=== PATIENT | female | born 1980 | race Caucasian/White ===

== ENCOUNTER 2022-12-10 08:16 | Outpatient (CLI) | payer OTHER, SELFPAY ==
[2022-12-10 11:47] LABS: Albumin* 4.5 g/dL (3.3-5.0); Chloride* 107 mmol/L (96-114)
[2022-12-10 11:48] LABS: Potassium* 4.6 mmol/L (3.6-5.1); Sodium* 139 mmol/L (135-149)
[2022-12-10 11:50] LABS: Alkaline Phosphatase* 43 U/L (40-150); Aspartate Amino Transferase* 25 U/L (12-35); Bilirubin Total* 0.5 mg/dL (0.1-1.5); Blood Urea Nitrogen* 17 mg/dL (5-24); Carbon Dioxide* 28 mmol/L (20-32); Cholesterol* 166 mg/dL (90-199); Creatinine* 0.7 mg/dL (0.5-1.5); Estimated Glomerular Filt Rate 109 ml/min; Glucose* 97 mg/dL (60-115); Total Protein* 7.3 g/dL (6.0-8.3); Triglycerides* 60 mg/dL (40-149)
[2022-12-10 11:51] LABS: Alanine Aminotransferase* 20 U/L (4-35); Calcium* 9.2 mg/dL (8.4-10.6); HDL Cholesterol* 80 mg/dL (>=50); LDL Cholesterol Calculated 74 mg/dL (<100)
== END 2022-12-10 08:17 | disposition home or self-care (01) ==
PROVIDERS: PCP Internal Medicine; Visit Provider Internal Medicine
DX: I10 Essential (primary) hypertension (principal)
CPT/HCPCS: 80053; 80061

== ENCOUNTER 2024-05-07 08:19 | Outpatient (CLI) | payer BC, SELFPAY ==
--- OUTSIDE RECORDS SUMMARY | 2024-05-11 21:48 | XMS_ITS | Clinical Summary ---
Author Organization [place] Address [facility]0 [facility] [place] [address] Care Team Providers Care Outplacement Consultant Name Role Phone No Ref-Primary, Physician Primary Care Provider Allergies No known active allergies Medications Medication Sig Dispensed Refills Start Date End Date Status PREDNISONE 20 MG OR TABSIndications:Bronchit is with bronchospasm 2 tabs PO QAM x 5 days 10 0 12/04/2009 Active AZITHROMYCIN 250 MG OR TABSIndications:Bronchit is with bronchospasm 2 tabs PO qday x 5 days 10 0 12/04/2009 Active Active Problems Problem Noted Date Diagnosed Date CARDIOVASCULAR SCREENING; LDL GOAL LESS THAN 160 09/16/2010 Social History Tobacco Use Types Packs/Day Years Used Date Smoking Tobacco: Never Alcohol Use Standard Drinks/Week Comments Not Asked 0 (1 standard drink = 0.6 oz pur e alcohol) Adolescent Education Answer Date Record ed Getting School Help Needed Not on file 09/02 Sex and Gender Information Value Date Recorded Sex Assigned at Not on file Gender Identity Not on file Sexual Orientation Not on file Last Filed Vital Signs Vital Sign Reading Time Taken Comments Blood Pressure 130/74 12/04/2009 11:36 AM RAIL TRANSPORTATION OPERATOR Pulse - - Temperature 37.3 ??C (99.1 ??F) 12/04/2009 11:[address] Respiratory Rate - - Oxygen Saturation - - Inhaled Oxygen Concentration - - Weight 59 kg (130 lb) 12/04/2009 11:36 AM RAIL TRANSPORTATION OPERATOR Height 167.6 cm (5' 6) 12/04/2009 11:36 AM RAIL TRANSPORTATION OPERATOR Body Mass Index 20.98 12/04/2009 11:36 AM RAIL TRANSPORTATION OPERATOR Plan of Treatment Health Maintenance Due Date Last Done Comments ADVANCE CARE PLANNING 1978 ANNUAL REVIEW OF HM ORDERS 1978 CT COLONOGRAPHY 1978 FIT 1978 FLEX SIG 1978 sDNA (Cologuard) 1978 COLONOSCOPY 1988 COLORECTAL CANCER SCREENING 1988 HIV SCREENING 1993 HEPATITIS C SCREENING 1996 HEPATITIS B IMMUNIZATION (1 of 3 - 19+ 3-dose series) 1997 GLUCOSE 05/16/2011 05/16/2008 LIPID 2018 YEARLY PREVENTIVE VISIT 05/22/2022 05/22/2021 COVID-19 Vaccine ( season) 2023 08/13/2022, 09/25/2021, 01/24/2021, Additional history exists PHQ-2 (once per calendar year) 2023 INFLUENZA VACCINE (Season Ended) 2024 08/13/2022, 08/17/2020, 08/17/2020, Additional history exists MAMMO SCREENING 05/07/2025 05/07/2023, 12/19, 10/17/2020, Additional history exists PAP 05/07/2026 05/07/2023 DTAP/TDAP/TD IMMUNIZATION (3 - Td or Tdap) 12/10/2032 12/10/2022, 08/28/2012 HPV IMMUNIZATION Aged Out No longer e ligible based on patient's age to complete this topic IPV IMMUNIZATION Aged Out No longer e ligible based on patient's age to complete this topic MENINGITIS IMMUNIZATION Aged Out No l onger eligible based on patient's age to complete this topic Pneumococcal Vaccine: Pediatrics (0 to 5 Years) and At-Risk Patients (6 to 64 Years) Aged Out No longer eligible based on patient's age to complete this topic RSV MONOCLONAL ANTIBODY Aged Out No l onger eligible based on patient's age to complete this topic Procedures Procedure Name Priority Date/Time Associated Diagnosis Comments GYNECOLOGIC CYTOLOGY Routine 05/07/2023 4:31 PM CDT Encounter for gynecological examination (general) (routine) without abnormal findings MA SCREENING BILATERAL W/ ARTUR Routine 05/07/2023 2:19 PM CDT Visit for screening mammogram COMPREHENSIVE METABOLIC PANEL STAT 05/16/2008 6:30 PM CDT from Last 3 Months or Most Recently Relevant to Health Maintenance Results * Gynecologic Cytology (PAP) (05/07/2023 4:31 PM CDT) Interpretation Negative for Intraepithelial Lesion or Malignancy (NILM) 05/12/2023 10:05 AM CDT [facility] Comment Papanicolaou Test Limitations: Cervical cytology is a screening test with limited sensitivity, and regular screening is critical for cancer prevention. Pap tests are primarily effective for the diagnosis/prevent ion of squamous cell carcinoma, not adenocarcinoma or other cancers. 05/12/2023 10:05 AM CDT [facility] Specimen Adequacy Satisfactory for evaluation, endocervical/loera sformation zone component present 05/12/2023 10:05 AM CDT [facility] Clinical Information none 05/12/2023 10:05 AM CDT [facility] LMP/Menopause Date 04/30/23 05/12/2023 10:05 AM CDT [facility] Reflex Testing Yes if ASCUS 05/12/20 10:05 AM CDT [facility] Previous Abnormal? No 05/12/2023 10:05 AM CDT [facility] Previous Abnormal Diagnosis negative 05/12/2023 10:05 AM CDT [facility] Performing Labs The technical component of this testing was completed at [facility] 05/12/2023 10:05 AM CDT [facility] Brushing ENDOCERVICAL STRUCTURE / Unknown 05/07/2023 4:31 PM CDT 05/07/2023 8:52 PM CDT Gloria STILL - [facility] [address], [address] [place] [address], [facility] [phone] * MA Screen Bilateral w/Artur (05/07/2023 2:19 PM CDT) Anatomical Region Laterality Modality Breast Bilateral Mammography Impressions 05/07/2023 2:58 PM CDT IMPRESSION: ACR BI-RADS Category 1: Negative RECOMMENDED FOLLOW-UP: Annual routine screening mammogram The results and recommendations of this examination will be communicated to the patient. Alyson Lancaster MD Narrative 05/07/2023 2:58 PM CDT BILATERAL FULL FIELD DIGITAL SCREENING MAMMOGRAM WITH TOMOSYNTHESIS Performed on: 05/07/23 Compared to: 01/10/2022, 10/17/2020, and 01/08/2019 Technique: ??This study was evaluated with the assistance of Computer-Aided Detection. ??Breast Tomosynthesis was used in interpretation. Findings: The breasts are heterogeneously dense, which may obscure small masses. ??There is no radiographic evidence of malignancy. Gloria Kathleen Batres MD IMG M AMMOGRAPHY ORDERABLES * (ABNORMAL) Comprehensive metabolic panel (05/16/2008 6:30 PM CDT) Sodium 139 133 - 144 mmol/L [facility] Potassium 3.8 3.4 - 5.3 mmol/L [facility] Chloride 106 94 - 109 mmol/L [facility] Carbon Dioxide 25 20 - 32 mmol/L [facility] Glucose 90 60 - 99 mg/dL [facility] Urea Nitrogen 10 5 - 24 mg/dL [facility] Creatinine 0.56 0.52 - 1.04 mg/dL [facility] Comment:New IDMS-traceable c alibration beginning 03/17/08 GFR Estimate >90 >60 mL/min/1.7 m2 [facility] GFR Estimate If Black >90 >60 mL/min/1.7 m2 [facility] Calcium 8.4(L) 8.5 - 10.4 mg/dL [facility] AST 43 0 - 45 U/L [facility] Protein Total 6.2(L) 6.8 - 8.8 g/dL [facility] Comment:As of 08, refer ence range reflects plasma specimen type. Anion Gap 8 6 - 17 mmol/L [facility] Albumin 3.1(L) 3.3 - 4.6 g/dL [facility] ALT 34 0 - 50 U/L [facility] Alkaline Phosphatase 123 40 - 150 U/L [facility] Bilirubin Total 0.2 0.2 - 1.3 mg/dL [facility] 05/16/2008 6:30 PM CDT 05/16/2008 6:19 PM CDT Yesenia Epstein MD LAB - BLOOD ORDERA BLES [facility] from Last 3 Months or Most Recently Relevant to Health Maintenance Care Teams Outplacement Consultant Relationship Specialty Start Date End Date No Ref-Primary, Physician PCP - General 10/19/20
--- OUTSIDE RECORDS SUMMARY | 2024-05-11 21:48 | XMS_ITS | Referral Summary ---
Author Organization [place] Address [facility] [place] [address] Care Team Providers Care Service Engineer Name Role Phone No Ref-Primary, Physician Primary [...] Comments Blood Pressure 130/74 12/04/2009 11:36 AM SPORTS COMPLEX ATTENDANT Pulse - - Temperature 37.3 ??C (99.1 ??F) 12/04/2009 11:[address] Respiratory Rate - - Oxygen Saturation - - Inhaled Oxygen Concentration - - Weight 59 kg (130 lb) 12/04/2009 11:36 AM SPORTS COMPLEX ATTENDANT Height 167.6 cm (5' 6) 12/04/2009 11:36 AM SPORTS COMPLEX ATTENDANT Body Mass Index 20.98 12/04/2009 11:36 AM SPORTS COMPLEX ATTENDANT Plan of Treatment Not on file Procedures Procedure Name Priority Date/Time Associated Diagnosis [...] component of this testing was completed at [facility] 05/12/2023 10:05 AM CDT [facility] Brushing ENDOCERVICAL STRUCTURE / Unknown 05/07/2023 4:31 PM CDT 05/07/2023 8:52 PM CDT Gloria STILL - [facility] Specialty Lab [address] [facility], [address] [place] [address], [facility] [phone] * MA Screen Bilateral w/Artur (05/07/2023 2:19 [...] is no radiographic evidence of malignancy. Gloria Batres MD IMG M AMMOGRAPHY ORDERABLES * [...] Recently Relevant to Health Maintenance Care Teams Service Engineer Relationship Specialty Start Date End Date No Ref-Primary, Physician PCP - General 10/19/20
--- OUTSIDE RECORDS SUMMARY | 2024-05-11 21:48 | XMS_ITS | Clinical Summary ---
Author Organization [facility] Address [place], [place] [address] Care Team Providers Care Traffic Supervisor Name Role Phone Malcom Grigsby MD Primary Care Provider Lovely Graham MD Unavailable [phone] Other, Er Doc Unavailable Unavailable Allergies No known active allergies Medications Medication Sig Dispensed Refills Start Date End Date Status lisinopril-hydroch lorothiazide (10-12.5 mg) tablet (PRINZIDE; ZESTORETIC) lisinopril 10 mg-hydrochlorothiaz miguel angel 12.5 mg tablet TAKE 1 TABLET BY MOUTH EVERY DAY Active hydroxychloroquine (PLAQUENIL) 200 mg tabletIndications: Inflammatory arthritis,High risk medication use ALTERNATING DOSES OF 200 MG AND 400 MG DAILY. 200 MG ON DAY 1 FOLLOWED BY 400 MG ON DAY 2 ETC. 135 Tablet 2 09/08/2023 Active predniSONE (DELTASONE) 10 mg tabletIndications: Inflammatory arthritis Take 1 Tablet (10 mg) by mouth once daily with a meal. 14 Tablet 03/29/2024 Active Active Problems Problem Noted Date Diagnosed Date Hypertension 05/23/2014 Encounters Date Type Department Care Team Description 03/29/2024 2:00 PM CDT Office Visit [facility] [address] [place] [address] Lovely Graham MD Follow Up (Tingling in fingers. Intermittent x 2 weeks. Swelling in LT knee as of yesterday. /Last visit 01/06. Last CEE 05/06/23) 03/29/2024 Travel from Last 3 Months Immunizations Name Administration Dates Next Due Influenza, IIV3 (Age >=3 years) 08/28/2012 Influenza, IIV4 08/13/2022 Influenza, IIV4 (=>6mos) MDV 08/17/2020,08/24/20 19 Tdap 12/10/2022,08/28/2012 Family History Medical History Relation Name Comments Good Health Brother Heart Disease Maternal Grandfather Hypertension Maternal Grandfather Osteoarthritis Maternal Grandmother Heart Disease Mother Rheum arthritis Paternal Grandfather Juvenile idiopathic arthritis Son Relation Name Status Comments Brother Maternal Grandfather Maternal Grandmother Mother Alive Paternal Grandfather Son Social History Tobacco Use Types Packs/Day Years Used Date Smoking Tobacco: Never Smokeless Tobacco: Never Tobacco Cessation:Counseling Given: Yes Alcohol Use Standard Drinks/Week Comments Yes 1 (1 standard drink = 0.6 oz pur e alcohol) no regular PHQ-2 Answer Date Recorded PHQ-2 Score 0 01/19/2019 Sex and Gender Information Value Date Recorded Sex Assigned at Not on file Gender Identity Not on file Sexual Orientation Not on file Obstetrics History Last Filed Vital Signs Vital Sign Reading Time Taken Comments Blood Pressure 110/66 03/29/2024 2:00 PM CDT Pulse 68 03/29/2024 2:00 PM CDT Temperature 37.3 ??C (99.1 ??F) 05/14/2018 11:40 AM C DT Respiratory Rate 12 03/29/2024 2:00 PM CDT Oxygen Saturation 97% 05/14/2018 11:40 AM CDT Inhaled Oxygen Concentration - - Weight 64.5 kg (142 lb 4.8 oz) 03/29/2024 2:00 P M CDT Height 167.6 cm (5' 6) 01/31/2023 12:52 PM CDT Body Mass Index 22.97 01/31/2023 12:52 PM CDT Plan of Treatment Upcoming Encounters Date Type Department Care Team (Late st Contact Info) Description 01/10/2025 1:30 PM SILVICULTURE PROFESSOR Office Visit [facility] [address] [place] [address] Lovely Graham MD [address] [place] [address] Health Maintenance Due Date Last Done Comments HIV for age 15-65 1993 Hepatitis C screening for age 18-79 1996 Pap test for age 21-65 06/17/2016 3 (Completed outside of [facility]) Depression screening for age 12+ 05/11/2019 05/11/2018 Colonoscopy through age 75 2023 Lipids for age 45-75 2023 05/23/2014 Mammogram for age 45-75 2023 COVID-19 vaccine series ( season) 2023 08/13/2022, 09/25/2021, 01/24/2021, Additional history exists BMI (ht and wt on same day) for age 18+ 02/01/2024 01/31/2023, 07/13/2021, 04/28/2019, Additional history exists Influenza for age 9-49 07/18/2024 , 08/17/2020, 08/24/2019, Additional history exists Tetanus booster 12/10/2032 12/10/2022, 08/28/2012 Tdap Completed 12/10/2022, 08/28/2012 Pneumococcal series for age 6-64 Aged Out No longer eligible based on patient's age to complete this topic Procedures Procedure Name Priority Date/Time Associated Diagnosis Comments C4 COMPLEMENT Routine 03/29/2024 2:38 PM CDT High risk medication use C3 COMPLEMENT Routine 03/29/2024 2:38 PM CDT High risk medication use DNA DOUBLE-STRANDED (DSDNA) ANTIBODIES BY CLYDE VIDES IFA Routine 03/29/2024 2:38 PM CDT High risk medication use COMP METABOLIC PANEL Routine 03/29/2024 2:38 PM CDT High risk medication use HEMOGLOBIN Routine 03/29/2024 2:38 PM CDT High risk medication use WHITE BLOOD COUNT Routine 03/29/2024 2:3 8 PM CDT High risk medication use RA QUANTITATIVE Routine 03/29/2024 2:38 PM CDT High risk medication use CYCLIC CITRULLINE PEPTIDE Routine 03/29/2024 2:38 PM CDT High risk medication use C-REACTIVE PROTEIN Routine 03/29/2024 2: 38 PM CDT High risk medication use SEDIMENTATION RATE Routine 03/29/2024 2: 38 PM CDT High risk medication use LIPID PANEL W REFLEX MEASURED LDL Routine 05/23/2014 9:12 AM CDT Lipid screening from Last 3 Months or Most Recently Relevant to Health Maintenance Results * SEDIMENTATION RATE (03/29/2024 2:38 PM CDT) SEDIMENTATION RATE 3 <20 mm/hr 2023 3:02 PM CDT [facility] Blood BLOOD SPECIMEN / Unknown Venipuncture / Unknown 03/29/2024 2:38 PM CDT 03/29/2024 2:38 PM CDT Lovely Graham MD HEMATOLOGY [facility] SENDOUT INTERNAL ZIP [phone] [place] [address] * CYCLIC CITRULLINE PEPTIDE (03/29/2024 2:38 PM CDT) CCP Antibody,IgG/I gA <4.6 <=19.9 CU 03/31/2024 1:12 PM CDT [facility] Blood BLOOD SPECIMEN / Unknown Venipuncture / Unknown 03/29/2024 2:38 PM CDT 03/29/2024 2:38 PM CDT Narrative [facility] - 03/31/2024 1:12 PM CDT Negative <20 Positive >=20 The following results were obtained with the [employer] QUANTA Flash CCP3 chemiluminescent immunoassay. Values obtained with different manufacturers' assay methods may not be used interchangeably. Lovely Graham MD SEND OUTS Performing Organization Address City/[facility]/ZIP Co de Phone Number [facility] [address] [place] [phone], [place] * RA QUANTITATIVE (03/29/2024 2:38 PM CDT) RHEUMATOID FACTOR,QUANT <10.00 <14.00 IU/mL 03/30/2024 11:32 AM CDT [facility] Blood BLOOD SPECIMEN / Unknown Venipuncture / Unknown 03/29/2024 2:38 PM CDT 03/29/2024 2:38 PM CDT Lovely Graham MD SEND OUTS Performing Organization Address [facility] Co de Phone Number [facility] [address] [place] [address], [place] * C3 COMPLEMENT (03/29/2024 2:38 PM CDT) C3 COMPLEMENT 101.98 81.10 - 157.00 mg/dL 03/30/2024 1:22 PM CDT [facility] Blood BLOOD SPECIMEN / Unknown Venipuncture / Unknown 03/29/2024 2:38 PM CDT 03/29/2024 2:38 PM CDT Lovely Graham MD CHEMISTRY Performing Organization Address [facility]/ZIP Co de Phone Number [facility] [address] [place] [phone], [place] * C4 COMPLEMENT (03/29/2024 2:38 PM CDT) C4 Complement 22.36 12.90 - 39.20 mg/dL 03/30/2024 1:22 PM CDT [facility] Blood BLOOD SPECIMEN / Unknown Venipuncture / Unknown 03/29/2024 2:38 PM CDT 03/29/2024 2:38 PM CDT Lovely Graham MD CHEMISTRY [facility] [address] [place] [address], * WHITE BLOOD COUNT (03/29/2024 2:38 PM CDT) WHITE BLOOD COUNT 7.0 4.5 - 11.0 thou/cu mm 03/29/2024 2:45 PM CDT [facility] NRBC 0.0 % 03/29/2024 2:45 PM CDT [facility] ABS NRBC 0.0 thou /cu mm 03/29/2024 2:45 PM CDT [facility] Blood BLOOD SPECIMEN / Unknown Venipuncture / Unknown 03/29/2024 2:38 PM CDT 03/29/2024 2:38 PM CDT Lovely Graham MD HEMATOLOGY [facility] SENDOUT INTERNAL ZIP [phone] [place] [id number] * HEMOGLOBIN (03/29/2024 2:38 PM CDT) Pathologist [facility] HEMOGLOBIN 12.4 12.0 - 16.0 g/dL 03/29/2024 2:45 PM CDT [facility] MCV 89 80 - 100 fL 03/29/2024 2:45 PM CDT [facility] Blood BLOOD SPECIMEN / Unknown Venipuncture / Unknown 03/29/2024 2:38 PM CDT 03/29/2024 2:38 PM CDT Lovely Graham MD HEMATOLOGY [facility] SENDOUT INTERNAL ZIP [phone] [place] [address] * DNA DOUBLE-STRANDED (DSDNA) ANTIBODIES BY CRITHIDIA LUCILIAE IFA (03/29/2024 2:38 PM CDT) Pathologist [facility] ANTI-ATMAUTLUAK DNA Negative Negative 03/31/2024 12:53 PM CDT [facility] Blood BLOOD SPECIMEN / Unknown Venipuncture / Unknown 03/29/2024 2:38 PM CDT 03/29/2024 2:38 PM CDT Narrative [facility] - 03/31/2024 12:53 PM CDT Method: DNA Double-Stranded (dsDNA) Antibodies by Clyde vides IFA, IgG, Serum Lovely Graham MD SEND OUTS [facility] [address] [place] [address], * C-REACTIVE PROTEIN (03/29/2024 2:38 PM CDT) C-REACTIVE PROTEIN <0.3 <0.5 mg/dL 03/29/2024 3:05 PM CDT [facility] Blood BLOOD SPECIMEN / Unknown Venipuncture / Unknown 03/29/2024 2:38 PM CDT 03/29/2024 2:38 PM CDT Lovely Graham MD CHEMISTRY [facility] SENDOUT INTERNAL ZIP [phone] [place] [address] * (ABNORMAL) COMP METABOLIC PANEL (03/29/2024 2:38 PM CDT) Pathologist [facility] SODIUM 138 136 - 145 mmol/L 03/29/2024 3:03 PM CDT [facility] POTASSIUM 3.8 3.5 - 5.1 mmol/L 03/29/2024 3:03 PM CDT [facility] CHLORIDE 103 98 - 107 mmol/L 03/29/2024 3:03 PM CDT [facility] CO2,TOTAL 26 22 - 29 mmol/L 03/29/2024 3:03 PM CDT [facility] ANION GAP 9 5 - 18 03/29/2024 3:03 PM CDT [facility] GLUCOSE 92 70 - 99 mg/dL 03/29/2024 3:03 PM CDT [facility] CALCIUM 9.0 8.6 - 10.0 mg/dL 03/29/2024 3:03 PM CDT [facility] BUN 9 6 - 20 mg/dL 03/29/2024 3:03 PM CDT [facility] CREATININE 0.68 0.50 - 0.90 mg/dL 03/29/2024 3:03 PM T [facility] BUN/CREAT RATIO 13 10 - 20 4 3:03 PM T [facility] eGFR >90 >90 mL/min/1.7 3m2 03/29/2024 3:03 PM T [facility] Comment:As of 2022, eG FR is calculated by the CKD-EPI creatinine equation without race adjustment. ??eGFR can be influenced by muscle mass, exercise, and diet. ??The reported eGFR is an estimation only and is only applicable if the renal function is stable. ALBUMIN 4.6 4.0 - 4.9 g/dL 03/29/2024 3:03 PM T [facility] PROTEIN,TOTAL 7.2 6.0 - 8.0 g/dL 03/29/2024 3:03 PM T [facility] BILIRUBIN,TOTAL 0.4 0.0 - 1.2 mg/dL 03/29/2024 3:03 PM T [facility] ALK PHOSPHATASE 44 35 - 104 IU/L 03/29/2024 3:03 PM T [facility] ALT (SGPT) 8(L) 10 - 35 IU/L 03/29/2024 3:03 PM T [facility] AST (SGOT) 21 10 - 35 IU/L 03/29/2024 3:03 PM T [facility] Blood BLOOD SPECIMEN / Unknown Venipuncture / Unknown 03/29/2024 2:38 PM CDT 03/29/2024 2:38 PM CDT Lovely Graham MD CHEMISTRY [facility] SENDOUT INTERNAL ZIP [phone] [place] [phone] * LIPID PANEL W REFLEX MEASURED LDL (05/23/2014 9:12 AM CDT) CHOLESTEROL,TOTAL 184 100 - 199 mg/dL 05/23/2014 9:39 AM CDT [facility] TRIGLYCERIDES 35 <150 mg/dL 05/23/2014 9:39 AM CDT [facility] HDL CHOLESTEROL 67 >40 mg/dL 4 9:39 AM CDT [facility] NON-HDL CHOLESTEROL 117 <145 mg/dl 05/23/2014 9:39 AM CDT [facility] CHOL/HDL RATIO 2.75 <4.50 05/23/2014 9:39 AM CDT [facility] LDL CHOLESTEROL 110 <=130 mg/dL 05/23/2014 9:39 AM CDT [facility] PATIENT STATUS FASTING 05/23/2014 9:39 AM CDT [facility] Blood specimen (specimen) BLOOD SPECIMEN / Unknown Venipuncture / Unknown 05/23/2014 9:12 AM CDT 05/23/2014 9:12 AM CDT Marylin Lopez MD CHEMISTRY [facility] [address] [place] [address], from Last 3 Months or Most Recently Relevant to Health Maintenance Care Teams Traffic Supervisor Relationship Specialty Start Date End Date Malcom Grigsby MD [address] [place] [address] PCP - General Internal Medicine 05/11/18 Lovely Graham MD [address] [facility] [address] [place] [address] Rheumatology Rheumatology 04/28/19 Other, Er Doc Ophthalmology 04/28/19
== END 2024-05-07 08:20 | disposition home or self-care (01) ==
LOC: NFLDREF 05-11 21:47
PROVIDERS: PCP Internal Medicine; Referring Provider Internal Medicine; Visit Provider Internal Medicine
DX: I10 Essential (primary) hypertension (principal); E78.5 Hyperlipidemia, unspecified; Z13.9 Encounter for screening, unspecified
CPT/HCPCS: 80053; 80061

== ENCOUNTER 2024-05-24 07:21 | Outpatient (CLI) | payer BC, SELFPAY ==
--- OUTSIDE RECORDS SUMMARY | 2024-05-24 07:23 | XMS_ITS | Clinical Summary ---
Author Organization [place] Address [facility] [place] [address] Care Team Providers Care Tempering Kiln Tender Name Role Phone No Ref-Primary, Physician Primary [...] Comments Blood Pressure 130/74 12/04/2009 11:36 AM MEDIA DEVELOPER Pulse - - Temperature 37.3 ??C (99.1 ??F) 12/04/2009 11:[address] Respiratory Rate - - Oxygen Saturation - - Inhaled Oxygen Concentration - - Weight 59 kg (130 lb) 12/04/2009 11:36 AM MEDIA DEVELOPER Height 167.6 cm (5' 6) 12/04/2009 11:36 AM MEDIA DEVELOPER Body Mass Index 20.98 12/04/2009 11:36 AM MEDIA DEVELOPER Plan of Treatment Health Maintenance Due Date [...] component of this testing was completed at [facility] 05/12/2023 10:05 AM CDT [facility] Brushing ENDOCERVICAL STRUCTURE / Unknown 05/07/2023 4:31 PM CDT 05/07/2023 8:52 PM CDT Gloria STILL - [facility] [address], [address] [place] [address], [facility] [phone] * MA Screen Bilateral w/Artur (05/07/2023 2:19 [...] Recently Relevant to Health Maintenance Care Teams Tempering Kiln Tender Relationship Specialty Start Date End Date No Ref-Primary, Physician PCP - General 10/19/20
--- OUTSIDE RECORDS SUMMARY | 2024-05-24 07:23 | XMS_ITS | Referral Summary ---
Author Organization [place] Address [facility] [place] [address] Care Team Providers Care Health Unit Supervisor Name Role Phone No Ref-Primary, Physician Primary [...] Comments Blood Pressure 130/74 12/04/2009 11:36 AM [employer] Pulse - - Temperature 37.3 ??C (99.1 ??F) 12/04/2009 11:[address] Respiratory Rate - - Oxygen Saturation - - Inhaled Oxygen Concentration - - Weight 59 kg (130 lb) 12/04/2009 11:36 AM [employer]ER Height 167.6 cm (5' 6) 12/04/2009 11:36 AM [employer]OURCE OFFICER Body Mass Index 20.98 12/04/2009 11:36 AM [employer] RESOURCE OFFICER Plan of Treatment Not on file Procedures [...] component of this testing was completed at [facility] 05/12/2023 10:05 AM CDT SPECIAL[facility] Brushing ENDOCERVICAL STRUCTURE / Unknown 05/07/2023 4:31 PM CDT 05/07/2023 8:52 PM CDT Gloria STILL - [facility] Specialty Lab [address] [facility], [address] [place] [id number], [facility] [phone] * MA Screen Bilateral w/Artur (05/07/2023 2:19 [...] Recently Relevant to Health Maintenance Care Teams Health Unit Supervisor Relationship Specialty Start Date End Date No Ref-Primary, Physician PCP - General 10/19/20
--- OUTSIDE RECORDS SUMMARY | 2024-05-24 07:23 | XMS_ITS | Clinical Summary ---
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 Office Visit [facility] [address] [place] [address] Lovely Graham MD [address] [place] [address] Health Maintenance Due Date Last Done Comments [...] 3 <20 mm/hr 2023 3:02 PM CDT [facility] Blood BLOOD SPECIMEN / Unknown Venipuncture / Unknown 03/29/2024 2:38 PM CDT 03/29/2024 2:38 PM CDT Lovely Graham MD HEMATOLOGY [facility] SENDOUT INTERNAL ZIP [phone] [place] [address] * CYCLIC CITRULLINE PEPTIDE (03/29/2024 2:38 PM CDT) CCP Antibody,IgG/I gA <4.6 <=19.9 CU 03/31/2024 1:12 PM CDT [facility] Blood BLOOD SPECIMEN / Unknown Venipuncture / Unknown 03/29/2024 2:38 PM CDT 03/29/2024 2:38 PM CDT Narrative [facility] - 03/31/2024 1:12 PM CDT Negative <20 Positive >=20 The following results were obtained with the MoveinBlue QUANTA Flash CCP3 chemiluminescent immunoassay. Values obtained with different manufacturers' assay methods may not be used interchangeably. Lovely Graham MD SEND OUTS Performing Organization Address City/[facility]/ZIP Co de Phone Number [facility] [address] [place] [phone], [place] * RA QUANTITATIVE (03/29/2024 2:38 PM CDT) RHEUMATOID FACTOR,QUANT <10.00 <14.00 IU/mL 03/30/2024 11:32 AM CDT [facility] Blood BLOOD SPECIMEN / Unknown Venipuncture / Unknown 03/29/2024 2:38 PM CDT 03/29/2024 2:38 PM CDT Lovely Graham MD SEND OUTS Performing Organization Address [facility] Co de Phone Number [facility] [address] [place] [address], [place] * C3 COMPLEMENT (03/29/2024 2:38 PM CDT) C3 COMPLEMENT 101.98 81.10 - 157.00 mg/dL 03/30/2024 1:22 PM CDT [facility] Blood BLOOD SPECIMEN / Unknown Venipuncture / Unknown 03/29/2024 2:38 PM CDT 03/29/2024 2:38 PM CDT Lovely Graham MD CHEMISTRY Performing Organization Address [facility]/ZIP Co de Phone Number [facility] [address] [place] [address], [place] * C4 COMPLEMENT (03/29/2024 2:38 PM CDT) C4 Complement 22.36 12.90 - 39.20 mg/dL 03/30/2024 1:22 PM CDT [facility] Blood BLOOD SPECIMEN / Unknown Venipuncture / Unknown 03/29/2024 2:38 PM CDT 03/29/2024 2:38 PM CDT Lovely Graham MD CHEMISTRY [facility] [address] [place] [address], * WHITE BLOOD COUNT (03/29/2024 2:38 PM CDT) WHITE BLOOD COUNT 7.0 4.5 - 11.0 thou/cu mm 03/29/2024 2:45 PM CDT [facility] NRBC 0.0 % 03/29/2024 2:45 PM CDT [facility] ABS NRBC 0.0 thou /cu mm 03/29/2024 2:45 PM CDT [facility] Blood BLOOD SPECIMEN / Unknown Venipuncture / Unknown 03/29/2024 2:38 PM CDT 03/29/2024 2:38 PM CDT Lovely Graham MD HEMATOLOGY [facility] SENDOUT INTERNAL ZIP [phone] [place] [address] * HEMOGLOBIN (03/29/2024 2:38 PM CDT) Pathologist [facility] HEMOGLOBIN 12.4 12.0 - 16.0 g/dL 03/29/2024 2:45 PM CDT [facility] MCV 89 80 - 100 fL 03/29/2024 2:45 PM CDT [facility] Blood BLOOD SPECIMEN / Unknown Venipuncture / Unknown 03/29/2024 2:38 PM CDT 03/29/2024 2:38 PM CDT Lovely Graham MD HEMATOLOGY [facility] SENDOUT INTERNAL ZIP [phone] [place] [address] * DNA DOUBLE-STRANDED (DSDNA) ANTIBODIES BY CRITHIDIA LUCILIAE IFA (03/29/2024 2:38 PM CDT) Pathologist [facility] ANTI-[place] DNA Negative Negative 03/31/2024 12:53 PM CDT [facility] Blood BLOOD SPECIMEN / Unknown Venipuncture / Unknown 03/29/2024 2:38 PM CDT 03/29/2024 2:38 PM CDT Narrative [facility] - 03/31/2024 12:53 PM CDT Method: DNA Double-Stranded (dsDNA) Antibodies by Clyde vides IFA, IgG, Serum Lovely Graham MD SEND OUTS [facility] [address] [place] [address], * C-REACTIVE PROTEIN (03/29/2024 2:38 PM CDT) C-REACTIVE PROTEIN <0.3 <0.5 mg/dL 03/29/2024 3:05 PM CDT [facility] Blood BLOOD SPECIMEN / Unknown Venipuncture / Unknown 03/29/2024 2:38 PM CDT 03/29/2024 2:38 PM CDT Lovely Graham MD CHEMISTRY [facility] SENDOUT INTERNAL ZIP [phone] [place] [address] * (ABNORMAL) COMP METABOLIC PANEL (03/29/2024 2:38 PM CDT) Pathologist [facility] SODIUM 138 136 - 145 mmol/L 03/29/2024 3:03 PM CDT [facility] POTASSIUM 3.8 3.5 - 5.1 mmol/L 03/29/2024 3:03 PM CDT [facility] CHLORIDE 103 98 - 107 mmol/L 03/29/2024 3:03 PM CDT [facility] CO2,TOTAL 26 22 - 29 mmol/L 03/29/2024 3:03 PM CDT [facility] ANION GAP 9 5 - 18 03/29/2024 3:03 PM CDT [facility] GLUCOSE 92 70 - 99 mg/dL 03/29/2024 3:03 PM CDT [facility] CALCIUM 9.0 8.6 - 10.0 mg/dL 03/29/2024 3:03 PM CDT [facility] BUN 9 6 - 20 mg/dL 03/29/2024 3:03 PM CDT [facility] CREATININE 0.68 0.50 - 0.90 mg/dL 03/29/2024 3:03 PM T [facility] BUN/CREAT RATIO 13 10 - 20 4 3:03 PM T [facility] eGFR >90 >90 mL/min/1.7 3m2 03/29/2024 3:03 PM T [facility] Comment:As of 2022, eG FR is calculated by the CKD-EPI creatinine equation without race adjustment. ??eGFR can be influenced by muscle mass, exercise, and diet. ??The reported eGFR is an estimation only and is only applicable if the renal function is stable. ALBUMIN 4.6 4.0 - 4.9 g/dL 03/29/2024 3:03 PM T [facility] PROTEIN,TOTAL 7.2 6.0 - 8.0 g/dL 03/29/2024 3:03 PM T [facility] BILIRUBIN,TOTAL 0.4 0.0 - 1.2 mg/dL 03/29/2024 3:03 PM T [facility] ALK PHOSPHATASE 44 35 - 104 IU/L 03/29/2024 3:03 PM T [facility] ALT (SGPT) 8(L) 10 - 35 IU/L 03/29/2024 3:03 PM T [facility] AST (SGOT) 21 10 - 35 IU/L 03/29/2024 3:03 PM T [facility] Blood BLOOD SPECIMEN / Unknown Venipuncture / Unknown 03/29/2024 2:38 PM CDT 03/29/2024 2:38 PM CDT Lovely Graham MD CHEMISTRY [facility] SENDOUT INTERNAL ZIP [phone] [place] [phone] * LIPID PANEL W REFLEX MEASURED LDL (05/23/2014 9:12 AM CDT) CHOLESTEROL,TOTAL 184 100 - 199 mg/dL 05/23/2014 9:39 AM CDT [facility] TRIGLYCERIDES 35 <150 mg/dL 05/23/2014 9:39 AM CDT [facility] HDL CHOLESTEROL 67 >40 mg/dL 4 9:39 AM CDT [facility] NON-HDL CHOLESTEROL 117 <145 mg/dl 05/23/2014 9:39 AM CDT [facility] CHOL/HDL RATIO 2.75 <4.50 05/23/2014 9:39 AM CDT [facility] LDL CHOLESTEROL 110 <=130 mg/dL 05/23/2014 9:39 AM CDT [facility] PATIENT STATUS FASTING 05/23/2014 9:39 AM CDT [facility] Blood specimen (specimen) BLOOD SPECIMEN / Unknown Venipuncture / Unknown 05/23/2014 9:12 AM CDT 05/23/2014 9:12 AM CDT Marylin Lopez MD CHEMISTRY [facility] [address] [place] [address], from Last 3 Months or Most Recently Relevant to Health Maintenance Care Teams Brick Molder Hand Relationship Specialty Start Date End Date Malcom Grigsby MD [address] [place] [address] PCP - General Internal Medicine 05/11/18 Lovely Graham MD [address] [facility] [[email or web address]] [address] [place] [address] Rheumatology Rheumatology 04/28/19 Other, Er Doc Ophthalmology 04/28/19
--- NOTE | 2024-05-24 08:29 | W.ANESCHARGE ---
Anesthesia Charges Start Date/Time Anesthesia Start Date: 05/24/24 Anesthesia Start Time: 08:05 Stop Date/Time Anesthesia Stop Date: 05/24/24 Anesthesia Stop Time: 08:27
--- NOTE | 2024-05-24 10:25 | W.ANESCHARGE ---
Anesthesia Charges Start Date/Time Anesthesia Start Date: 05/24/24 Anesthesia Start Time: 08:05 Stop Date/Time Anesthesia Stop Date: 05/24/24 Anesthesia Stop Time: 08:27
== END 2024-05-24 07:22 | disposition home or self-care (01) ==
LOC: OP CLINIC 07:22
PROVIDERS: PCP Internal Medicine; Visit Provider Internal Medicine
DX: Z12.11 Encounter for screening for malignant neoplasm of colon (principal)
CPT/HCPCS: 00812; 45378; J2704